=== PATIENT | female | born 1970 ===

== ENCOUNTER 2017-09-18 07:14 | Emergency (ER) | payer OTHER ==
[~2017-09-18] VITALS: Ht 157.5 cm; Wt 75.3 kg
[2017-09-18] MEDS ORDERED: HYDROCHLOROTHIA25 MG PO (07:32)
[2017-09-18] MEDS ORDERED: PRAVASTATIN SOD40 MG PO (07:32)
[2017-09-18] MEDS ORDERED: ASA81 MG PO (07:33)
[2017-09-18] MEDS ORDERED: METOPROLOL SUCC25 MG PO (07:33)
[2017-09-18] MEDS ORDERED: DIOVAN320 MG PO (07:33)
== END 2017-09-18 10:29 | disposition home or self-care (01) ==
LOC: ER 07:14
DX: R53.1 Weakness (principal)